=== PATIENT | female | born 1970 | race Caucasian/White ===

== ENCOUNTER 2018-07-28 10:57 | Emergency (ER) | payer MEDICAID ==
[~2018-07-28] VITALS: Wt 74.0 kg
[2018-07-28] MEDS ORDERED: KETOROLAC 60 MG INJ IM STA (11:36)
[2018-07-28] MEDS ORDERED: DIAZEPAM 5 MG TAB PO ONE (12:00)
[2018-07-28] MEDS ORDERED: DEXAMETHASONE 10 MG/ML 1 ML INJ IM ONE (12:00)
[2018-07-28] MEDS ORDERED: NAPR-985 PO (13:22)
[2018-07-28] MEDS ORDERED: PRED20TA PO (13:22)
[2018-07-28] MEDS ORDERED: CYCL10TA7 PO (13:22)
[2018-07-28 13:39] VITALS: BP 124/66; PULSE 67; RESP 18
--- NOTE | 2018-07-28 14:29 | ERD ---
ER Documentation Chief Complaint Chief Complaint back pain s/p 5 ft fall from ladder x1 mo ago HPI History of Present Illness: 47-year-old female with no past medical history coming in today with complaint of lower back pain and right arm pain. Patient reports a traumatic fall from ladder approximately 2 months ago patient reports exacerbation of pain in the past without new injury. Patient denies any other symptoms. Denies loss of bowel or bladder. Denies numbness tingling. At home pharmacological/nonpharmacological treatment for symptoms: DENIES Denies social concerns; Denies recent foreign travel ROS All systems reviewed and are negative except as per history of present illness. Medications Home Meds Active Scripts Prednisone* (Prednisone*) 20 Mg Tab, 40 MG PO DAILY for MUSCLE PAIN/BACK PAIN FLAREUP for 5 Days, TAB Prov:LOKESH MANSFIELD NP 07/28/18 Naproxen* (Naprosyn*) 500 Mg Tablet, 500 MG PO BID PRN for PAIN AND/OR INFLAMMATION, #30 TAB Prov:LOKESH MANSFIELD NP 07/28/18 Cyclobenzaprine Hcl* (Cyclobenzaprine Hcl*) 10 Mg Tablet, 10 MG PO TID PRN for MUSCLE PAIN/MUSCLE SPASM, #15 TAB Prov:LOKESH MANSFIELD [employer] 07/28/18 Allergies Allergies: Coded Allergies: No Known Allergy (Unverified , 07/28/18) PMhx/Soc Medical and Surgical Hx: pt denies Medical Hx, pt denies Surgical Hx Hx Alcohol Use: No Hx Substance Use: No Hx Tobacco Use: No Smoking Status: Never smoker FmHx Family History: coronary disease; No diabetes Physical Exam Vitals Vital Signs Date Temp Pulse Resp B/P (MAP) Pulse Ox O2 O2 Flow FiO2 Time Delivery Rate 07/28/18 98.1 67 18 124/66 100 Room Air 13:39 (85) 07/28/18 98.3 84 20 133/69 100 11:00 (90) Physical Exam Const: No acute distress, afebrile Head: Atraumatic Eyes: Normal Conjunctiva ENT: Normal External Ears, Nose and Mouth. Neck: Full range of motion. No meningismus. Resp: Clear to auscultation bilaterally Cardio: Regular rate and rhythm, no murmurs Abd: Soft, non tender, non distended. No guarding, no masses, no rigidity Skin: No petechiae or rashes Back: No CVA tenderness. Positive midline tenderness to lumbar. Positive paraspinal tenderness to the lumbar. Positive muscle tenderness to lumbar. Ext: No cyanosis, or edema. Positive tenderness to palpation over right elbow and right humerus, no deformity or ecchymosis, neurovascularly intact distally. Neur: Awake and alert x3, speaking in clear sentences, no focal deficits or facial asymmetry Psych: Normal Mood and Affect Results 24 hrs Laboratory Tests Test 07/28/18 11:51 POC Beta HCG, Qualitative NEGATIVE Current Medications Medications Dose Sig/Loy Start Time Status Last (Trade) Ordered Route PRN Stop Time Admin Dose Reason Admin Ketorolac 60 mg ONCE STAT 07/28/18 DC 07/28/18 Tromethamine IM 11:36 11:59 (Toradol) 07/28/18 11:40 10 mg ONCE ONCE 07/28/18 DC 07/28/18 Dexamethasone IM 12:00 11:59 (Decadron) 07/28/18 12:01 Diazepam 10 mg ONCE ONCE 07/28/18 DC 07/28/18 (Valium) PO 12:00 11:59 07/28/18 12:01 Procedures/MDM History of Present Illness: ED course includes a thorough examination and history. Medications: Ketorolac, Valium, dexamethasone Imaging: x-ray of lumbar, x-ray of humerus, x-ray of Elbow Labs: urine Low suspicion for life-threatening medical emergency. LOW Suspicion for ortho pedic emergency that requires hospitalization or immediate surgical intervention. Low suspicion for neurological emergency that requires hospitalization or immediate surgical intervention. Otherwise healthy patient presenting with constellation of symptoms likely representing uncomplicated lumbar pain and right arm pain secondary to fall from ladder as characterized by history, physical exam findings, radiologic findings, lab findings. Urinalysis negative for . Lumbar, humerus, elbow x-rays are unremarkable according to radiology report. No respiratory distress, otherwise relatively well appearing and nontoxic. Patient with decreased pain at time of reassessment. Disposition given. Questions answered. Verbalizes understanding of plan of care for outpatient follow-up. Patient educated on diagnoses, prescriptions, follow-up care, return precautions. Strict return precautions given for worsening condition; questions answered discharge. Disposition for discharge with followup in 2 days with PCP/clinic. At home pharmacological/nonpharmacological treatment for symptoms: Denies social concerns; Denies recent foreign travel Departure Diagnosis: Primary Impression: Fall from ladder Encounter type: initial encounter Qualified Codes: W11.XXXA - Fall on and from ladder, initial encounter Additional Impressions: Lumbar pain Right upper limb pain Muscle pain Condition: Stable Patient Instructions: Back Pain (Acute Or Chronic), Back Sprain/Strain [facility] Usted se pettit hecho un examen mdico de control que le indica que no est en rickie condicin que requiera tratamiento urgente en el Departamento de Emergencia. Un estudio ms profundo y el tratamiento de valente condicin pueden esperar sin ningn riesgo hasta que usted sea atendida/o en el consultorio de valente mdico o rickie clnica. Es responsabilidad suya arreglar rickie kimo para el seguimiento del fran. MANEJO DE CONDICIONES NO URGENTES EN EL FUTURO 1) Si usted tiene un mdico de atencin primaria: Usted debera llamar a valente mdico de atencin primaria antes de venir al departamento de emergencia. Despus de las horas de consultorio, valente doctor o valente asociado/a est disponible por telfono. El mdico o enfermero de neelam en el servicio telefnico puede asesorarle por sofy medio para atender el problema, o fran contrario se puede programar rickie kimo. 2) Si usted no tiene un mdico de atencin primaria: Llame al mdico o clnica de referencia que aparece abajo layne las horas de consultorio para hacer rickie kimo para que le vean. CLINICAS: [facility] [phone] [facility] [phone] [facility] [phone] [facility]. [place] [phone] [place] [phone] [facility] [phone] [address] [facility]. [facility] () Karla se pettit hecho un examen mdico de control que le indica que no est en rickie condicin que requiera tratamiento urgente en el Departamento de Emergencia. Un estudio ms profundo y el tratamiento de valente condicin pueden esperar sin ningn riesgo hasta que usted sea atendida/o en el consultorio de valente mdico o rickie clnica. Es responsabilidad suya arreglar rickie kimo para el seguimiento del fran. MANEJO DE CONDICIONES NO URGENTES EN EL FUTURO 1) Si usted tiene un mdico de atencin primaria: Karla debera llamar a valente mdico de atencin primaria antes de venir al departamento de emergencia. Despus de las horas de consultorio, valente doctor o valente asociado/a est disponible por telfono. El mdico o enfermero de neelam en el servicio telefnico puede asesorarle por sofy medio para atender el problema, o fran contrario se puede programar rickie kimo. 2) Si usted no tiene un mdico de atencin primaria: Llame al mdico o condado institucions de referencia que aparece abajo layne las horas de consultorio para hacer rickie kimo para que le vean. SI USTED NO PUEDE PAGAR PARA IWONA UN MEDICO puede ir a: [facility] [address] [place] [address] [facility] [address] [place] [address] [facility] [address] [place] [address] [facility] [address] [place] [address] Additional Instructions: Traduccin de shant documento (instrucciones adicionales) utilizando traducimos en lnea. Muchas pernell por permitirnos participar en valente cuidado. Valente sosa y seguridad es nuestra principal prioridad en [facility]. Es importante leer todas las instrucciones de amy y la educacin que se proporcionan en valente paquete de amy. * No hay huesos rotos en valente brazo derecho, codo derecho, radiografas de la parte inferior de la espalda. * Llame a valente mdico de atencin primaria MAANA para rickie kimo layne los prximos 2 a 4 pool y lleve toda la informacin y los medicamentos recetados. Llene las recetas y siga exactamente las instrucciones de la etiqueta. - Naproxeno es un medicamento antiinflamatorio / para el dolor; tome shant medicamento diariamente segn lo prescrito para la prxima semana para ayudar con la hinchazn / inflamacin / dolor. - La prednisona es un esteroide, que disminuye la inflamacin; usa medicamentos cada maana con el desayuno para disminuir la inflamacin asociada con valente dolor de espalda - La ciclobenzaprina cheyanne relajante muscular; tome shant medicamento diariamente segn lo prescrito para la prxima semana para ayudar con valente espasmo muscular. No opere maquinaria pesada mientras est tomando shant medicamento; Puede causarle somnolencia. Si los sntomas empeoran y valente proveedor no est disponible, regrese inmediatamente al Departamento de Emergencias. ---- Translation of this document (additional instructions) using we will translate online. Thank you very much for allowing us to participate in your care. Your health and safety is our top priority at [facility]. It is important to read all discharge instructions and education provided in your discharge packet. *There are no broken bones on your right arm, right elbow, lower back x-rays.* Call your primary care doctor TOMORROW for an appointment during the next 2-4 days and bring all the information and medications prescribed. Have prescriptions filled and follow precisely the directions on the label. - Naproxen is a anti-inflammatory/pain medication; take this medication daily as prescribed for the next week to help with swelling/inflammation/pain. --Prednisone is a steroid, which decreases inflammation; uses medication every morning with breakfast to decrease inflammation associated with your back pain --Cyclobenzaprine as a muscle relaxer; take this medication daily as prescribed for the next week to help with your muscle spasm. Do not operate heavy machinery while taking this medication; It may make you drowsy. If the symptoms get worse and your provider is unavailable, return to the Emergency Department immediately. LOKESH MANSFIELD NP Jul 28, 2018 14:29
== END 2018-07-28 13:40 | disposition home or self-care (01) ==
LOC: FTE 10:57
DX: M54.5 Low back pain (principal); M79.601 Pain in right arm; M79.10 Myalgia, unspecified site
CPT/HCPCS: 72100; 73060; 73080; 81025; J1100; J1885; Z7610; 96372